=== PATIENT | male | born 1975 | race Caucasian/White ===

== ENCOUNTER 2017-06-30 11:17 | Emergency (ER) | payer MEDICAID ==
[2017-06-30] MEDS ORDERED: Alum Hydrox/Mag Hydrox/Simeth 15 ML, Lidocaine 2% 15 ML PO ONE ×2 (12:04)
[2017-06-30] MEDS ORDERED: Sodium Chloride 0.9% 10 ML Syringe FLUSH PRN (12:04)
[2017-06-30] MEDS ORDERED: Aspirin 81 MG Tab.Chew PO ONE (12:04)
[2017-06-30] MEDS ORDERED: Ibuprofen 600 MG Tab PO ONE (12:04)
--- NOTE | 2017-06-30 12:10 | EDM.PDOC ---
ED HPI GENERAL MEDICAL PROBLEM - General Chief Complaint: Cardiovascular Problem Stated Complaint: DIZZY/CHEST PAIN Time Seen by Provider: 06/30/17 12:00 Source of Information: Reports: Patient History Limitations: Reports: No Limitations - History of Present Illness INITIAL COMMENTS - FREE TEXT/NARRATIVE: Edgar is a 41-year-old otherwise healthy male who presents to the emergency department today with complaints of sudden onset of left-sided chest pain, non- radiating, shortness of breath and lightheadedness while he was at work today. 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 Patient on arrival here reports that her shortness of breath has resolved, as has his lightheadedness. He does arrive here hypertensive with systolic pressure of 180. Patient denies any headache or visual changes. Patient reports that the pain on the left side of his chest comes and goes and is sharp in nature but has gotten better with rest. Patient has not taken anything for his symptoms. Patient is not a smoker. Patient does endorse a long-standing history of acid reflux which he takes Tums for at night. Patient does report a family history of strokes and high blood pressure. Onset: Today, Sudden - Related Data Allergies Allergy/AdvReac Type Severity Reaction Status Date / Time No Known Allergies Allergy Verified 06/20/16 15:30 Home Meds: Home Meds NK [No Known Home Meds] 05/15/14 [History] Past Medical History - Past Health History Medical/Surgical History: Denies Medical/Surgical History Social & Family History - Tobacco Use Smoking Status *Q: Former Smoker Used Tobacco, but Quit: Yes Month Tobacco Last Used: 15 years ago Second Hand Smoke Exposure: Yes - Caffeine Use Caffeine Use: Reports: Coffee - Alcohol Use Days Per Week of Alcohol Use: 3 Number of Drinks Per Day: 4 Total Drinks Per Week: 12 - Recreational Drug Use Recreational Drug Use: No ED ROS GENERAL - Review of Systems Review Of Systems: See Below Constitutional: Reports: No Symptoms HEENT: Reports: No Symptoms Respiratory: Reports: Shortness of Breath Cardiovascular: Reports: Chest Pain, Lightheadedness Endocrine: Reports: No Symptoms GI/Abdominal: Reports: No Symptoms : Reports: No Symptoms Musculoskeletal: Reports: No Symptoms Skin: Reports: No Symptoms Neurological: Reports: No Symptoms Psychiatric: Reports: No Symptoms Hematologic/Lymphatic: Reports: No Symptoms Immunologic: Reports: No Symptoms ED EXAM, GENERAL - Physical Exam Exam: See Below Exam Limited By: No Limitations General Appearance: Alert, WD/WN, No Apparent Distress Eye Exam: Bilateral Eye: EOMI Ears: Normal External Exam Nose: Normal Inspection Throat/Mouth: Normal Inspection, Normal Oropharynx Head: Atraumatic, Normocephalic Neck: Normal Inspection, Supple, Non-Tender Respiratory/Chest: No Respiratory Distress, Lungs Clear, Normal Breath Sounds, Chest Non-Tender Cardiovascular: Normal Peripheral Pulses, Regular Rate, Rhythm, No Murmur, Other (Hypertensive) GI/Abdominal: Normal Bowel Sounds, Soft, Non-Tender Extremities: Normal Inspection Neurological: Alert, Oriented, CN II-XII Intact Psychiatric: Normal Affect, Normal Mood Skin Exam: Warm, Dry, Intact Lymphatic: No Adenopathy EKG INTERPRETATION EKG Date: 06/30/17 Time: 11:33 Rhythm: NSR Rate (Beats/Min): 88 [place]: Normal P-Wave: Present QRS: Normal ST-T: Normal QT: Normal Comparison: NA - No Prior EKG Course - Vital Signs Last Recorded V/S: Last Vital Signs Temp 36.3 C 06/30/17 11:52 Pulse 75 06/30/17 12:29 Resp 18 06/30/17 11:30 BP 145/100 H 06/30/17 12:29 Pulse Ox 97 06/30/17 11:52 Edgar is an otherwise healthy 41-year-old male who presents to the emergency department today with sudden onset of shortness of breath and chest pain while at work today. Please refer to history of present illness and focused exam. Patient on arrival here only complains of mild chest pain. It is nonradiating. EKG was obtained and is unremarkable. It is likely that patient's chest pain and shortness of breath was likely multifactorial, exertional in nature as well as inflammatory/musculoskeletal given his recent heavy lifting of multiple barrels both yesterday and today. Patient was given 324 mg of aspirin here as well as ibuprofen and a GI cocktail for his complaints of acid reflux, his workup today including a troponin and d-dimer is rather unremarkable. CBC shows mildly elevated hemoglobin of 15 and BUNs is mildly elevated at 24. Patient was given a liter of normal saline. Chest x-ray was obtained and is unremarkable as well. Patient's blood pressure did remain elevated throat his ED stay here today. He has not seen his primary care provider in quite some time. He feel given his family history of hypertension as well as patient's hypertension while in the ED it is imperative he follows up with his clinic this next week to discuss his blood pressure as well as his ongoing issues with acid reflux. Given his reassuring workup here in the emergency room today, I do feel comfortable with patient going home. His heart score is one putting him at very low risk for an acute cardiac event. Reasons to return to the emergency department were discussed in detail. For now I would like patient to try ibuprofen, 600 mg every 6 hours for his chest wall pain and I will start him on a prescription of Prilosec daily for his acid reflux. I did discuss with patient in detail acid reflux and how if it is left untreated complications that can arise including Bolaños's esophagus and making patient's more predisposed to esophageal cancer. Patient and his family were agreeable to plan of care and patient was discharged in stable condition. - Orders/Labs/Meds Orders: Active Orders 24 hr Category Date Time Status Peripheral IV Care [RC] . DIRECTED Care 06/30/17 12:04 Active Chest 2V [CR] Stat Exams 06/30/17 12:59 Taken Peripheral IV Insertion Adult [OM.PC] Routine Oth 06/30/17 12:04 Ordered EKG 12 Lead [EK] Stat Ther 06/30/17 11:46 Ordered Labs: Laboratory Tests 06/30/17 06/30/17 06/30/17 Range/Units 12:09 12:09 12:09 WBC 7.4 (4.5-11.0) K/uL RBC 5.24 (4.30-5.90) M/uL Hgb 15.3 H (12.0-15.0) g/dL Hct 44.7 (40.0-54.0) % MCV 85 (80-98) fL MCH 29 (27-31) pg MCHC 34 (32-36) % Plt Count 301 (150-400) K/uL Neut % (Auto) 62 (36-66) % Lymph % (Auto) 30 (24-44) % [place] % (Auto) 8 H (2-6) % Eos % (Auto) 0 L (2-4) % Baso % (Auto) 0 (0-1) % D-Dimer, Quantitative < 100 (0.0-400.0) ng/mL Sodium 138 L (140-148) mmol/L Potassium 3.8 (3.6-5.2) mmol/L Chloride 105 (100-108) mmol/L Carbon Dioxide 26 (21-32) mmol/L Anion Gap 10.8 (5.0-14.0) mmol/L BUN 24 H (7-18) mg/dL Creatinine 1.0 (0.8-1.3) mg/dL Est Cr Clr Drug Dosing 99.36 mL/min Estimated GFR (MDRD) > 60 (>60) Glucose 96 (74-106) mg/dL Calcium 8.5 (8.5-10.1) mg/dL Total Bilirubin 0.3 (0.2-1.0) mg/dL AST 17 (15-37) U/L ALT 40 (12-78) U/L Alkaline Phosphatase 65 (46-116) U/L Troponin I < 0.017 (0.000-0.056) ng/mL Total Protein 7.1 (6.4-8.2) g/dL Albumin 4.0 (3.4-5.0) g/dL Globulin 3.1 (2.3-3.5) g/dL Albumin/Globulin Ratio 1.3 (1.2-2.2) Meds: Medications Discontinued Medications Generic Name Dose Route Start Last Admin Trade Name Freq PRN Reason Stop Dose Admin Aspirin 324 mg 06/30/17 12:04 06/30/17 12:25 Aspirin PO 06/30/17 12:05 324 mg ONETIME ONE Administration Al Hydroxide/Mg Hydroxide 15 0 ml 06/30/17 12:04 06/30/17 12:26 ml/ Lidocaine HCl 15 ml PO 06/30/17 12:05 15 ml ONETIME ONE Administration Ibuprofen 600 mg 06/30/17 12:04 06/30/17 12:25 Motrin PO 06/30/17 12:05 600 mg ONETIME ONE Administration Sodium Chloride 10 ml 06/30/17 12:04 Saline Flush FLUSH ASDIRECTED PRN Keep Vein Open Departure - Departure Time of Disposition: 14:00 Disposition: Home, Self-Care 01 Condition: Good Clinical Impression: Acute chest wall pain Instructions: Chest Wall Pain, [id number] Referrals: Reece Kilpatrick MD [Primary Care Provider] - Forms: ED Department Discharge Additional Instructions: Edgar, Your work up here today is reassuring. I do not think your heart is the cause of your symptoms, but likely muscle strain from your job. I would recommend taking 600 mg of Ibuprofen every 6 hours for chest wall pain. I have given you a prescription for Prilosec which I want you to take daily for your heart burn/acid reflux. This medication does not work unless you take it daily. Your blood pressure has been elevated throughout your ED stay here today. I would really like you to follow up with your primary doctor this next week to discuss your blood pressure and ED visit today. If you experience any worsening symptoms, please return to the ED. - My Orders Last 24 Hours: My Active Orders 06/30/17 11:46 EKG 12 Lead [EK] Stat 06/30/17 12:04 Peripheral IV Care [RC] . DIRECTED Peripheral IV Insertion Adult [OM.PC] Routine 06/30/17 12:59 Chest 2V [CR] Stat - Assessment/Plan Last 24 Hours: My Active Orders 06/30/17 11:46 EKG 12 Lead [EK] Stat 06/30/17 12:04 Peripheral IV Care [RC] . DIRECTED Peripheral IV Insertion Adult [OM.PC] Routine 06/30/17 12:59 Chest 2V [CR] Stat
[2017-06-30 12:30] VITALS: BP 145/100
--- NOTE | 2017-06-30 14:02 | CR ---
Chest 2V HISTORY: No Clinical Info FINDINGS: Heart size within normal limits. Pulmonary vasculature within normal limits. No evidence fo r focal consolidation or cardiopulmonary process. IMPRESSION: No radiographic evidence for acute cardiopulmonary process.
== END 2017-06-30 13:55 | disposition home or self-care (01) ==
LOC: JP.ED 11:17
DX: R07.89 Other chest pain (principal); R06.02 Shortness of breath; K21.9 Gastro-esophageal reflux disease without esophagitis; Z87.891 Personal history of nicotine dependence
CPT/HCPCS: 36415; 71020; 80053; 84484; 85025; 85379; 93005; 99284; A9270